=== PATIENT | male | born 1990 | race African-American/Black ===

== ENCOUNTER 2017-01-24 14:27 | Emergency (ER) | payer OTHER ==
[2017-01-24 15:22] VITALS: BP 117/79
== END 2017-01-24 15:22 | disposition home or self-care (01) ==
LOC: ED 14:27
DX: S09.90XA Unspecified injury of head, initial encounter (principal); W22.8XXA Striking against or struck by other objects, initial encounter; Y93.89 Activity, other specified; Y99.8 Other external cause status; Y92.89 Other specified places as the place of occurrence of the external cause

== ENCOUNTER 2020-04-02 16:00 | Emergency (ER) | payer OTHER ==
[~2020-04-02] VITALS: Ht 177.8 cm; Wt 108.9 kg
[2020-04-02 16:30] VITALS: Ht 177.8 cm; Wt 108.9 kg
[2020-04-02 16:52] VITALS: BP 144/92
== END 2020-04-02 16:52 | disposition home or self-care (01) ==
LOC: ED 16:00
DX: S61.002A Unspecified open wound of left thumb without damage to nail, initial encounter (principal); W26.0XXA Contact with knife, initial encounter; Y93.89 Activity, other specified; Y92.89 Other specified places as the place of occurrence of the external cause; Y99.8 Other external cause status

== ENCOUNTER 2020-04-04 11:09 | Emergency (ER) | payer OTHER ==
[~2020-04-04] VITALS: Ht 177.8 cm; Wt 108.9 kg
[2020-04-04 11:27] VITALS: Ht 177.8 cm; Wt 108.9 kg
[2020-04-04 11:48] VITALS: BP 134/82
== END 2020-04-04 11:48 | disposition home or self-care (01) ==
LOC: ED 11:09
DX: S66.9 Injury of unspecified muscle, fascia and tendon at wrist and hand level (principal); J45.909 Unspecified asthma, uncomplicated; W26.0XXD Contact with knife, subsequent encounter